=== PATIENT | female | born 1965 | race Caucasian/White ===

== ENCOUNTER 2016-10-13 18:08 | Emergency (ER) | payer OTHER ==
[2016-10-13] MEDS ORDERED: OXYCODONE-ACETAMINOPHEN 5-325 MG TABLET PO ONE (18:21)
--- NOTE | 2016-10-13 19:33 | RADIOLOGY REPORT (SQ) ---
EXAM DESCRIPTION: WRIST LEFT 3 VIEWS COMPLETED DATE/TIME: 10/13/2016 7:14 pm REASON FOR STUDY: pain/deform COMPARISON: None. NUMBER OF VIEWS: Three views. TECHNIQUE: AP, lateral, and oblique radiographic images acquired of the left wrist. LIMITATIONS: None. FINDINGS: MINERALIZATION: Normal. BONES: Impaction type comminuted fractures of the distal ulna and radius are identified. Fracture li ne extends to the articular surface of the distal radius. There is posterior angulation of the dista l fracture fragments. SOFT TISSUES: There is associated soft tissue swelling OTHER: No other significant finding. IMPRESSION: Comminuted impaction type fractures of the distal ulna and radius as noted above TECHNICAL DOCUMENTATION: JOB ID: [id number] [email or web address]- All Rights Reserved
--- NOTE | 2016-10-13 19:42 | ER Document Report ---
ED Extremity Problem, Upper - General Mode of Arrival: Ambulatory Information source: Patient TRAVEL OUTSIDE OF THE [place] IN LAST 30 DAYS: No - HPI Patient complains to provider of: Left, Wrist Associated symptoms: Other - See above <BERNADETTE LOPES - Last Filed: 10/13/16 23:31> <MARLA RAZA - Last Filed: 10/14/16 01:01> <ALTHEA FAY - Last Filed: 10/14/16 03:06> - General Chief Complaint: Arm Pain Stated Complaint: LEFT ARM PAIN Time Seen by Provider: 10/13/16 18:20 Notes: Patient is a 51 year old female who presents to the emergency department complaining of an injury to her left wrist. Patient states she was watching TV with her on the couch when the cat ran out and she became angry hitting the side of the house with her left palm. Patient's states that she heard a crunch but thought it was the siding which gave in. Patient complains of pain and swelling in her left wrist. Patient reports she lost a pulse in her hand for about 5 minutes after the incident. Patient is not on any regular medications except for Sudafed. Patient admits she did go to Urgent Care first and was told to come to the emergency department. (BERNADETTE LOPES) - Related Data Allergies/Adverse Reactions: No Known Allergies Allergy (Verified 10/13/16 18:12) Past Medical History - General Information source: Patient - Social History Smoking Status: Former Smoker Frequency of alcohol use: None Drug Abuse: None Lives with: Spouse/Significant other Family History: Reviewed & Not Pertinent Patient has suicidal ideation: No Patient has homicidal ideation: No - Past Medical History Cardiac Medical History: Reports: Hx Atrial Fibrillation Surgical Hx: Negative - Immunizations Hx Diphtheria, Pertussis, Tetanus Vaccination: Yes <BERNADETTE LOPES - Last Filed: 10/13/16 23:31> Review of Systems - Review of Systems Constitutional: No symptoms reported EENT: No symptoms reported Cardiovascular: No symptoms reported Respiratory: No symptoms reported Gastrointestinal: No symptoms reported Genitourinary: No symptoms reported Female Genitourinary: No symptoms reported Musculoskeletal: See HPI, Joint pain, Joint swelling Skin: No symptoms reported Hematologic/Lymphatic: No symptoms reported Neurological/Psychological: No symptoms reported -: Yes All other systems reviewed and negative <BERNADETTE LOPES - Last Filed: 10/13/16 23:31> Physical Exam <BERNADETTE LOPES - Last Filed: 10/13/16 23:31> <MARLA RAZA - Last Filed: 10/14/16 01:01> <ALTHEA FAY - Last Filed: 10/14/16 03:06> - Vital signs Vitals: Temp Pulse Resp BP Pulse Ox 98.5 F 97 20 124/81 94 10/13/16 18:13 10/13/16 18:13 10/13/16 18:13 10/13/16 18:13 10/13/16 18:13 - Notes Notes: GENERAL: Alert, interacts well. No acute distress. HEAD: Normocephalic, atraumatic. EYES: Pupils equal, round, and reactive to light. Extraocular movements intact. ENT: Oral mucosa moist, tongue midline. NECK: Full range of motion. Supple. Trachea midline. LUNGS: No respiratory distress. EXTREMITIES: Distal left forearm swollen with deformity visible on posterior side. No deformity to left hand, good capillary refill in left digits. Full range of motion in left elbow. Radial and ulnar pulses 2/4 bilaterally. No cyanosis. NEUROLOGICAL: Alert and oriented x3. Normal speech. Somewhat decreased sensation to left hand PSYCH: Normal affect, normal mood. SKIN: Warm, dry, normal turgor. No rashes or lesions noted. (BERNADETTE LOPES) Capillary refill less than 2 seconds to the left hand. (MARLA RAZA) Course <BERNADETTE LOPES - Last Filed: 10/13/16 23:31> <MARLA RAZA - Last Filed: 10/14/16 01:01> <ALTHEA FAY - Last Filed: 10/14/16 03:06> - Re-evaluation Re-evalutation: 10/13/16 23:35 X-ray shows displaced comminuted fractures of the radius and ulna distally, using ketamine I was able to easily reduce the use, repeat x-ray shows interval reduction with good alignment. Patient was splinted in a sugar tong splint. When the patient awoke from the ketamine she was somewhat anxious, I did offer her Ativan but she declined. Patient did have an episode of hypotension which I cannot explain however it resolved quickly on its own. Patient also had an episode of hypoxia during which she was very anxious however her heart rate was normal, when she took deep breaths of room air this resolved. I did do a chest x-ray just in case and this did not reveal any acute process. 10/14/16 01:01 When sleeping the patient does have continued episodes of hypoxia down to 88%, whenever she wakes up her oxygenation normalizes. While ambulating around the department of is between 95 and 96% on room air. Patient is denying any chest pain or shortness of breath, has no risk factors for pulmonary embolism, is not tachycardic. Patient may have some residual sedative in her system however ketamine does not typically cause this type of hypoxia. Patient is agreeable to being observed for another [address] Fay, if she continues to have significant hypoxia while laying on her side and sleeping we will perform a CT angiogram of the chest at that time. (MARLA RAZA) 10/14/16 03:06 Patient was reevaluated multiple times, she has been satting 97-100% on room air even while laying flat and on her side. She otherwise looks well in no distress, she is stable for discharge at this time (ALTHEA FAY) - Vital Signs Vital signs: Temp Pulse Resp BP Pulse Ox 98.5 F 85 15 116/82 98 10/13/16 18:13 10/13/16 21:41 10/14/16 02:46 10/14/16 02:46 10/14/16 02:46 Procedures - Conscious Sedation Conscious sedation Time started: 21:13 Time completed: 21:50 Consent obtained: Yes Indication: comminuted fracture radius and ulna Last meal: 1 p.m. Normal healthy pt.: P1. - ASA Classification Airway Evaluation: Normal anatomy Mallampati Classification: Class 1 Used during procedure: Suction available, IV access obtained, Pulse ox on pt., satellite project site monitor on pt. Medications administered: Ketamine Reversal agents: None I personally performed/intraservice time: Sedation, Procedure, 31-45 min Complications: No - Immobilization Left Wrist Pre-Proc Neuro Vasc Exam: Normal Immobilizer type: Sugar tong, Sling Performed by: Provider, PCT Post-Proc Neuro Vasc Exam: Normal, Unchanged from pre-exam Alignment checked and good: Yes - Joint Reduction/Fracture Care Left distal forearm Consent obtained: Yes Conscious sedation: Yes Pre-procedure NV exam: Yes Fracture: Closed Manipulation comment: Fracture reduced without difficulty. Post-procedure NV exam: Yes Post-reduction x-ray: Joint reduced - Fracture reduced Reduction attempts: 1 Complications: No <MARLA RAZA - Last Filed: 10/14/16 01:01> Discharge <BERNADETTE LOPES - Last Filed: 10/13/16 23:31> <MARLA RAZA - Last Filed: 10/14/16 01:01> <ALTHEA FAY - Last Filed: 10/14/16 03:06> - Discharge Clinical Impression: Radius and ulna distal fracture Qualifiers: Encounter type: initial encounter Fracture type: closed Laterality: left Qualified Code(s): S52.502A - Unspecified fracture of the lower end of left radius, initial encounter for closed fracture Condition: Stable Disposition: HOME, SELF-CARE Additional Instructions: Fractured Radius and Ulna Both bones of the forearm, the radius and the ulna, are fractured. This type of fracture is typically caused by falling onto the outstretched hand. The fractures are not serious, however, and should heal well with adequate protection. Your physician's evaluation shows the bones are now in good position to heal. A cast or splint is used to protect the fractures. For the first few days after the injury, the arm should be elevated and ice packed. Most often, a splint is used first, with a cast later on. Healing takes from four to eight weeks, depending on the age of the patient and the seriousness of the broken bones. Your doctor has explained the treatment plan. It's important that you follow up as instructed to prevent complications. Call the doctor or return at once if severe pain or swelling occur, or if the hand becomes numb, swollen, or discolored. Prescriptions: Oxycodone HCl/Acetaminophen [Percocet 5-325 mg Tablet] 1 - 2 tab PO Q4HP PRN # 15 tablet PRN Reason: Referrals: KOLTON AYERS NP-C [Primary Care Provider] - Follow up as needed JAYSHREE MENDOZA MD [ACTIVE STAFF] - Follow up in 3-5 days (Call the office to arrange follow-up in the next week. ) Scribe Attestation: 10/13/16 23:35 I personally performed the services described in the documentation, reviewed and edited the documentation which was dictated to the scribe in my presence, and it accurately records my words and actions. (MARLA RAZA)
[2016-10-13] MEDS ORDERED: KETAMINE HCL INJ 500 MG/10 ML VIAL IV ONE ×2 (19:43→22:03)
[2016-10-13] MEDS ORDERED: ONDANSETRON HCL INJ/PF 4 MG/2 ML SDV IV ONE ×2 (21:43→21:47)
--- NOTE | 2016-10-13 21:56 | RADIOLOGY REPORT (SQ) ---
EXAM DESCRIPTION: WRIST LEFT 2 VIEWS COMPLETED DATE/TIME: 10/13/2016 9:44 pm REASON FOR STUDY: s/p reduction COMPARISON: 10/13/2016 TECHNIQUE: AP and lateral views of the left wrist post reduction LIMITATIONS: None. FINDINGS: The previously described comminuted fractures of the distal ulna and radius are again iden tified. There has been interval reduction. An overlying cast is identified. IMPRESSION: Interval reduction as noted above. An overlying cast is now identified TECHNICAL DOCUMENTATION: JOB ID: [id number] [employer]- All Rights Reserved
[2016-10-13] MEDS ORDERED: HYDROCODONE/ACETAMINOPHEN 5-325 MG 6 TAB/DSPK PO PRN (22:05)
[2016-10-13] MEDS ORDERED: LORAZEPAM INJ 2 MG/1 ML VIAL IV ONE (22:38)
--- NOTE | 2016-10-13 23:31 | RADIOLOGY REPORT (SQ) ---
EXAM DESCRIPTION: CHEST SINGLE VIEW COMPLETED DATE/TIME: 10/13/2016 11:10 pm REASON FOR STUDY: hypoxia COMPARISON: October 2015 EXAM PARAMETERS: NUMBER OF VIEWS: One view. TECHNIQUE: Single frontal radiographic view of the chest acquired. RADIATION DOSE: NA LIMITATIONS: None. FINDINGS: LUNGS AND PLEURA: No opacities, masses or pneumothorax. No pleural effusion. MEDIASTINUM AND HILAR STRUCTURES: No masses. Contour normal. HEART AND VASCULAR STRUCTURES: Heart normal in size. Normal vasculature. BONES: No acute findings. HARDWARE: None in the chest. OTHER: No other significant finding. IMPRESSION: NO ACUTE RADIOGRAPHIC FINDING IN THE CHEST. TECHNICAL DOCUMENTATION: JOB ID: [id number]
[2016-10-14] MEDS ORDERED: OXYCODONE-ACETAMINOPHEN 5-325 MG TABLET PO ONE (01:01)
[2016-10-14 03:19] VITALS: BP 113/89
== END 2016-10-14 03:22 | disposition home or self-care (01) ==
LOC: ER 18:08
PROC: 0PSJXZZ Reposition Left Radius, External Approach (ICD-10-PCS; principal; 2016-10-13)
DX: S52.502A Unspecified fracture of the lower end of left radius, initial encounter for closed fracture (principal); M79.602 Pain in left arm; M25.532 Pain in left wrist; X58.XXXA Exposure to other specified factors, initial encounter; Z87.891 Personal history of nicotine dependence
CPT/HCPCS: 99283; 99153; 99152; 96374; 71010; 73100; 73110; 25605; L3650; J3490; J2405

== ENCOUNTER 2016-10-16 10:49 | Day surgery (SDC) | payer OTHER ==
[~2016-10-16 10:49] MED LIST: CEFAZOLIN SODIUM 2 GM in DEXTROSE 5%-WATER 100 ML IV PRN; DEXAMETHASONE SOD PHOSPHATE INJ 4 MG/1 ML VIAL ONE; KETOROLAC TROMETHAMINE 60 MG/2 ML SDV ONE; LIDOCAINE 2% INJ-PF (20 MG/ML) 10 ML AMPUL ONE; SUCCINYLCHOLINE CHLORIDE INJ 200 MG/10 ML VIAL ONE
[2016-10-16 11:24] LABS: HEMATOCRIT 42.3 % (36.0-47.0); HEMOGLOBIN 14.4 g/dL (12.0-15.5); HGB HCT DIFFERENCE 0.9; MEAN CORPUSCULAR HEMOGLOBIN 30.1 pg (27.0-33.4); MEAN CORPUSCULAR HGB CONC 34.2 g/dL (32.0-36.0); MEAN CORPUSCULAR VOLUME 88 fl (80-97); RED BLOOD COUNT 4.79 10^6/uL (3.72-5.28); RED CELL DISTRIBUTION WIDTH 12.8 % (11.5-14.0); WHITE BLOOD COUNT 8.6 10^3/uL (4.0-10.5)
[2016-10-16 11:43] LABS: ANION GAP 12 (5-19); BLOOD UREA NITROGEN 18 mg/dL (7-20); CALCIUM 9.4 mg/dL (8.4-10.2); CARBON DIOXIDE 22 mmol/L (22-30); CHLORIDE 105 mmol/L (98-107); GLUCOSE 93 mg/dL (75-110); POTASSIUM 4.3 mmol/L (3.6-5.0); SODIUM 138.9 mmol/L (137-145)
[2016-10-16 11:45] LABS: APPEARANCE,URINE CLEAR; BILIRUBIN,URINE NEGATIVE (NEGATIVE); GLUCOSE, URINE NEGATIVE (NEGATIVE); KETONES,URINE NEGATIVE (NEGATIVE); LEUKOCYTE ESTERASE,URINE MODERATE (NEGATIVE); NITRITE,URINE NEGATIVE (NEGATIVE); PROTEIN,URINE NEGATIVE (NEGATIVE); UROBILINOGEN,URINE NEGATIVE mg/dL (<2.0)
[2016-10-16] MEDS ORDERED: BUPIVACAINE HCL 0.5 % INJ/PF 30 ML SDV ONE (12:04)
--- NOTE | 2016-10-16 12:13 | EKG REPORT ---
SEVERITY:- NORMAL ECG - SINUS RHYTHM : Confirmed by: Kendra Andrade MD 16-Oct-2016 12:12:54
[2016-10-16] MEDS ORDERED: MIDAZOLAM 2 MG/2 ML INJ ONE (12:32)
[2016-10-16] MEDS ORDERED: FENTANYL CITRATE INJ/PF 250 MCG/5 ML AMPULE ONE (12:32)
[2016-10-16] MEDS ORDERED: DEXMEDETOMIDINE INJ 80 MCG/20 ML VIAL IV ONE (12:33)
[2016-10-16] MEDS ORDERED: PROPOFOL INJ 200 MG/20 ML VIAL IV ONE (12:33)
[2016-10-16] MEDS ORDERED: OXYCODONE-ACETAMINOPHEN 5-325 MG TABLET PO PRN ×3 (13:01→14:30)
[2016-10-16] MEDS ORDERED: MORPHINE SULFATE 10 MG/ML INJ IV PRN (13:01)
[2016-10-16] MEDS ORDERED: MEPERIDINE HCL/PF INJ 25 MG/1 ML DISP.SYRIN IV PRN (13:01)
[2016-10-16] MEDS ORDERED: FENTANYL CITRATE INJ/PF 100 MCG/2 ML AMPUL IV PRN ×3 (13:01)
[2016-10-16] MEDS ORDERED: DIPHENHYDRAMINE HCL 50 MG/ML VIAL IV PRN (13:01)
[2016-10-16] MEDS ORDERED: PROMETHAZINE HCL INJ 25 MG/1 ML VIAL IV PRN ×2 (13:01)
[2016-10-16] MEDS ORDERED: ONDANSETRON HCL INJ/PF 4 MG/2 ML SDV IV PRN (14:30)
[2016-10-16] MEDS ORDERED: HYDROMORPHONE HCL INJ/PF 2 MG/ML AMPULE IV PRN (14:30)
[2016-10-16] MEDS: FENTANYL CITRATE INJ/PF 100 MCG/2 ML AMPUL ONE ×3 (14:34→14:47)
--- NOTE | 2016-10-16 14:34 | Operative Report ---
Operative Report PREOPERATIVE DIAGNOSIS: Right Comminuted Intra-articular Distal Radius Fracture POSTOPERATIVE DIAGNOSIS: Same OPERATION: ORIF Right >3 Part Intra-articular Distal Radius Fracture SURGEON: KATHY MERIDA ANESTHESIA: GA COMPLICATIONS: None ESTIMATED BLOOD LOSS: Minimal PROCEDURE: Indication for above procedure: 51-year-old female who sustained a injury to her left wrist when she hit a wall. Patient subsequently seen in emergency room where she underwent closed reduction. She was then seen at my office at which point we discussed findings on radiographs and treatment options. Given the comminution and intra- articular involvement along with patient's young age joint decision was made to proceed with operative intervention. CT scan was obtained demonstrating intra- articular fracture. Risks and benefits of the surgical procedure were explained to the patient patient verbalized understanding consented for the procedure. Procedure In Detail: Patient was seen and evaluated in the preoperative holding area. The LEFT upper extremity was initialized and marked. Patient received 2g of Ancef IV for bacterial prophylaxis. Patient was taken back to the operative room where transferred to the operative table and placed under general anesthesia. Once they were adequately anesthetized and a nonsterile tourniquet was placed on his upper extremity. A surgical team debriefing was performed ensuring all instrumentation was available, the surgical procedure was discussed with possible concerns reviewed. The upper extremity was prepped with chlorhexidine and alcohol and draped in a sterile fashion. A timeout was done identifying correct patient, procedure and extremity everyone in attendance agree with this and verbalized no concerns.The extremity was exsanguinated the tourniquet was inflated to 200 mmHg. A longitudinal skin incision was made via a volar approach of Francisco along the FCR tendon sheath. The FCR tendon sheath was opened and the FCR retracted ulnarly, the palmar cutaneous patient median nerve was identified and protected throughout the entirety of the case. The radial artery was identified and retracted radially. Dissection was done down to the FPL which was carefully sweeped ulnarly. This brought me to the pronator quadratus which was elevated off of the distal radius via sharp dissection with a 15 blade to allow later repair. The fracture was then identified and a reduction maneuver was performed utilizing a Dawn elevator. Acceptable reduction was then obtained and a Acumed 3 hole volar distal radius plate was placed into position and fixated with a K wire distally x2. AP and lateral radiographs were then obtained demonstrating appropriate placement of the plate and acceptable reduction of the fracture. Using a reduction tenaculum I was able to bring the plate down to bone distally. After drilling distally a cortical screw bringing the plate further down to bone, avoiding any liftoff of the plate from the volar cortex that could cause flexor tendon irritation post-operativley. Drilling near cortex and to but not thru the far cortex a locking screws were then placed in the remaining holes. The previous cortex screw was removed and replaced with a locking screw. Two additional screws were placed into the styloid giving further stability to the radial styloid piece. AP and lateral radius were then done confirming appropriate placement of plate with no evidence of penetration intra-articular or within the DRUJ. I then turned my attention to the proximal screws. I drilled bicortically bringing the plate down to bone with a cortex screw. The remaining 2 holes proximally were drilled bicortically placing the appropriate size cortex in the proximal most hole and a locking screw in the distal shaft hole. AP and lateral radiographs were done confirming appropriate placement of the plate and reduction of the fracture there was cheondoism of radial height, radial inclination and volar tilt. No evidence of dorsal screw prominence or intra-articular penetration of the DRUJ or radiocarpal joint. Under direct visualization the volar ulnar corner fragment had absolute stability there is no evidence of motion with wrist range of motion or manipulation of the fragment. The wound was copiously irrigated with normal saline. There was no evidence of DRUJ instability on examination, Negative Torres's test, No crepitus with range of motion at the radiocarpal joint or DRUJ. I then closed the pronator quadratus with interrupted 3-0 Vicryl suture. Subcutaneous tissues were closed with interrupted 4-0 Monocryl suture. The skin was closed with a running subcuticular 4-0 Monocryl suture which was reinforced with Dermabond and Steri- Strips. 3 0 mL of 0.5% Marcaine were injected for postoperative pain control. The tourniquet was then deflated. Was dressed with sterile 4 x 4's and patient was placed in a well-padded volar splint with bias wrap. Sponge counts, instrument counts and needle counts were correct. There was no intraoperative complications patient tolerated procedure well stable to PACU. Postoperative plan: Patient will be switched to a removal brace at her first postoperative followup visit and begin range of motion. Patient is encouraged to start vitamin C 500 mg daily for 51 days. Will obtain radiographs at followup of the wrist.
--- NOTE | 2016-10-16 14:36 | PDOC DISCHARGE SUMMARY ---
Discharge Summary (SDC) - Discharge Final Diagnosis: Comminuted intra-articular distal radius fracture Date of Surgery: 10/16/16 Discharge Date: 10/16/16 Condition: Good Treatment or Instructions: Schedule Follow Up w/ Dr. Chetan Wooten @ [facility] to be seen in 10-14 days or as scheduled [place]: [place]: [place]: Keep splint clean/dry/intact. Ice and elevate May begin finger range of motion attempting to make full fist. Stool softener of choice when on pain medication. Vitamin C 500 mg daily for 51 days Prescriptions: Oxycodone HCl 5 mg PO Q6 PRN #40 tablet PRN Reason: Discharge Diet: As Tolerated Respiratory Treatments at Home: Deep Breathing/Coughing Discharge Activity: No Lifting Over 10 Pounds, No Lifting/Push/Pulling Report the Following to Your Physician Immediately: Fever over 101 Degrees, Unusual Bleeding, Redness, Swelling, Warmth
--- NOTE | 2016-10-16 14:56 | RADIOLOGY REPORT (SQ) ---
EXAM DESCRIPTION: NO CHG FLUORO; WRIST LEFT 2 VIEWS COMPLETED DATE/TIME: 10/16/2016 2:26 pm REASON FOR STUDY: ORIF LEFT WRIST S52.532A COLLES' FRACTURE OF LEFT RADIUS, INIT FOR CLOS FX COMPARISON: 10/13/2016. FLUOROSCOPY TIME: 1 minutes 5 seconds. 8 images saved to PACS. TECHNIQUE: Intra-operative images acquired during surgical procedure to evaluate progress. NUMBER OF IMAGES: 8 images. LIMITATIONS: None. FINDINGS: Surgical fixation of the fracture of the distal radius with placement of hardware. IMPRESSION: IMAGE(S) OBTAINED DURING PROCEDURE. COMMENT: Quality ID [id number]: Final reports for procedures using fluoroscopy that document radiation exp osure indices, or exposure time and number of fluorographic images (if radiation exposure indices are not available) Please consult full operative report of the attending physician for description of the procedure. TECHNICAL DOCUMENTATION: JOB ID: [id number] [employer]- All Rights Reserved
[2016-10-16 17:00] VITALS: BP 125/81
== END 2016-10-16 16:45 | disposition home or self-care (01) ==
LOC: OROUT 10:49
PROVIDERS: ATTEND Orthopaedic Surgery
PROC: 0PSH04Z Reposition Right Radius with Internal Fixation Device, Open Approach (ICD-10-PCS; principal; 2016-10-16 14:45)
DX: S52.571A Other intraarticular fracture of lower end of right radius, initial encounter for closed fracture (principal); W22.09XA Striking against other stationary object, initial encounter; M79.632 Pain in left forearm; E66.9 Obesity, unspecified; Z87.891 Personal history of nicotine dependence; Z68.29 Body mass index [BMI] 29.0-29.9, adult
CPT/HCPCS: 36415; 85027; 81025; 80048; 81001; 73100; 93005; 93010; 25609; C1713 ×2; J2250; J0690; J1100; J1885; J3010 ×2; J0330; J2704; J3490 ×2; 01830

== ENCOUNTER → 2016-10-16 | Outpatient (CLI) | payer OTHER ==
--- NOTE | 2016-10-16 10:18 | RADIOLOGY REPORT (SQ) ---
EXAM DESCRIPTION: CT LT UPPER EXTREMITY WITHOUT COMPLETED DATE/TIME: 10/16/2016 9:12 am REASON FOR STUDY: COLLES FX OF LEFT RADIUS,INITIAL ENCOUNTER FOR CLOSED FX COMPARISON: X-ray dated 10/13/2016. TECHNIQUE: Axial imaging performed through the left wrist with reformatted coronal and sagittal imag ing windowed for bone and soft tissues. Images saved to PACS. 3D IMAGING: Were 3D images as MIP, SSD, or volume rendering performed at the work station? Yes. All CT scanners at this facility use dose modulation, iterative reconstruction, and/or weight based d osing when appropriate to reduce radiation dose to as low as reasonably achievable (ALARA). [facility]: Dose Right [facility]: CareDose [facility]: Dose Right [facility]: Teradose 4D [facility]: [employer] LIMITATIONS: None. RADIATION DOSE: Up-to-date CT equipment and radiation dose reduction techniques were employed. CTDIv ol: 6.4 mGy. DLP: 118 mGy-cm. mGy. FINDINGS: SOFT TISSUES: Soft tissue swelling. BONES: Comminuted impacted fracture of the distal radius with fractures extending to the articular jaeger rface. Nondisplaced comminuted fracture of distal ulna. The carpal bones are intact appropriate ali gnment. MINERALIZATION: Normal. OTHER: No other significant finding. IMPRESSION: COMMINUTED FRACTURES OF THE DISTAL RADIUS AND ULNA DESCRIBED. TECHNICAL DOCUMENTATION: JOB ID: [id number] Quality ID # [id number]: Final reports with documentation of one or more dose reduction techniques (e.g., Au tomated exposure control, adjustment of the mA and/or kV according to patient size, use of iterative reconstruction technique) 2010 [employer]- All Rights Reserved
== END ==
LOC: RAD 08:23
PROVIDERS: ATTEND Orthopaedic Surgery
DX: S52.532A Colles' fracture of left radius, initial encounter for closed fracture (principal); X58.XXXA Exposure to other specified factors, initial encounter

== ENCOUNTER 2019-01-27 07:08 | Day surgery (SDC) | payer OTHER ==
[2019-01-27] MEDS ORDERED: PROPOFOL INJ 200 MG/20 ML VIAL IV ONE (07:47)
[2019-01-27 08:55] VITALS: BP 100/64
--- NOTE | 2019-01-27 12:08 | Operative Report ---
Operative Report DATE OF SURGERY: 01/27/19 Operative Report: The risks benefits and alternatives of the procedure explained to the patient in detail and informed consent is obtained .A GIF Olympus video scope was inserted into the patient's mouth and hypopharynx ,the esophagus is identified intubated and insufflated, the scope was then advanced through the esophagus stomach and duodenum ,retroflexion maneuver is done, the esophagus stomach and first and second portions of the duodenum examined PREOPERATIVE DIAGNOSIS: Gastroesophageal reflux disease POSTOPERATIVE DIAGNOSIS: Gastritis status post biopsy without Helicobacter pylori OPERATION: EGD with biopsy SURGEON: TREVA LINDSAY ANESTHESIA: LMAC TISSUE REMOVED OR ALTERED: As noted above. COMPLICATIONS: None. ESTIMATED BLOOD LOSS: None. INTRAOPERATIVE FINDINGS: As noted above. PROCEDURE: Patient tolerated the procedure well. No immediate postprocedure complications are noted. Patient discharged in good condition. Discharge date 01/27/2019. Discharge diet: Regular. Discharge activity: Regular. 2 to 3-week follow-up to discuss findings. Patient is instructed to call the office or proceed to the emergency room should there be any further problems or questions. Wait on the pathology.
== END 2019-01-27 09:00 | disposition home or self-care (01) ==
LOC: END 07:08
PROVIDERS: ATTEND Internal Medicine Gastroenterology
DX: K21.9 Gastro-esophageal reflux disease without esophagitis (principal); K29.50 Unspecified chronic gastritis without bleeding; E78.2 Mixed hyperlipidemia; F17.210 Nicotine dependence, cigarettes, uncomplicated
CPT/HCPCS: 43239; 88342 ×2; 88305 ×2; 00731; J2704; 731